=== PATIENT | female | born 1965 | race Two or more races ===

== ENCOUNTER 2016-10-20 14:11 | Emergency (ER) | payer MEDICAID ==
[~2016-10-20] VITALS: Ht 157.5 cm; Wt 80.7 kg
[2016-10-20 15:18] LABS: Basophils # (auto) 0.1 uL; CONDITION Y; Eosinophils # (auto) 0.1 uL; Hemoglobin 12.8 g/dL (12.2-16.2); Lymphocytes # (auto) 2.1 uL; Lymphocytes % (auto) 24.2 % (10.0-50.0); Mean Corpuscular Hemoglobin 30.6 pg (28.0-32.0); Mean Corpuscular Hgb Conc. 34.5 g/dL (32.0-36.0); Mean Corpuscular Volume 88.9 fL (80.0-100.0); Mean Platelet Volume 8.3 fL (7.4-10.4); Monocytes # (auto) 0.4 uL; Monocytes % (auto) 4.4 % (0.0-12.0); Neutrophils # (auto) 6.1 uL; Neutrophils % (auto) 69.4 % (37.0-80.0); Platelet Count (auto) 300 10^3/uL (140-450); Red Cell Distribution Width 13.7 % (11.6-16.0); White Blood Cell 8.8 10^3/uL (4.4-10.8)
[2016-10-20 15:29] LABS: Albumin 3.5 g/dL (3.4-5.0); BUN/Creatinine Ratio 27.3; Bilirubin, Total 0.6 mg/dL (0.2-1.0); Calcium 8.4 mg/dL (8.5-10.1); Potassium 3.4 mmol/L (3.5-5.1); Total Protein 6.8 g/dL (6.4-8.2)
[2016-10-21 00:09] LABS: Magnesium 2.1 mg/dL (1.6-2.6)
[2016-10-21 00:10] VITALS: BP 147/73
[2016-10-21 00:12] LABS: INR 0.93 (0.9-1.15); Partial Thromboplastin Time 26.5 sec (22.64-33.71); Prothrombin Time 10.1 sec (9.37-12.3)
[2016-10-21 00:36] LABS: B-Type Natriuretic Peptide 57.72 pg/mL (0-100); Temperature: 22.9 C (20.0-25.0)
== END 2016-10-21 01:16 | disposition home or self-care (01) ==
LOC: ER 14:11
DX: R07.89 Other chest pain (principal); I10 Essential (primary) hypertension; R09.1 Pleurisy
CPT/HCPCS: 36415; 71020; 80053; 83735; 83880; 84443; 84484; 85025; 85379; 85610; 85730; 93005

== ENCOUNTER 2020-04-17 21:58 | Emergency (ER) | payer MEDICAID ==
[~2020-04-17] VITALS: Ht 154.9 cm; Wt 74.4 kg
[2020-04-17 22:10] VITALS: BP 147/78
[2020-04-17] MEDS ORDERED: LIDOCAINE VISCOUS 2% 15ML UD MT ONE (22:45)
[2020-04-17] MEDS ORDERED: SUCRALFATE 1 GM/10 ML ORAL SUSP PO ONE (22:45)
[2020-04-17] MEDS ORDERED: FAMOTIDINE 20 MG TAB PO ONE (22:45)
[2020-04-17 23:28] LABS: Basophils # (auto) 0.1 10 ^3/uL (0-0.2); Basophils % (auto) 0.7 % (0.0-2.0); Eosinophils # (auto) 1.3 10 ^3/uL (0-0.8); Eosinophils % (auto) 12.7 % (0.0-7.0); Hematocrit 40.4 % (36.0-46.0); Hemoglobin 13.7 g/dL (12.2-16.2); Lymphocytes # (auto) 3.3 10 ^3/uL (0.4-5.4); Lymphocytes % (auto) 32.5 % (10.0-50.0); Mean Corpuscular Hemoglobin 29.9 pg (28.0-32.0); Mean Corpuscular Hgb Conc. 33.9 g/dL (32.0-36.0); Mean Corpuscular Volume 88.1 fL (80.0-100.0); Monocytes # (auto) 0.5 10 ^3/uL (0-1.3); Monocytes % (auto) 4.4 % (0.0-12.0); Neutrophils # (auto) 5.1 10 ^3/uL (1.6-8.6); Neutrophils % (auto) 49.7 % (37.0-80.0); Nucleated Red Blood Cells % 0.1 %; Platelet Count (auto) 284 10^3/uL (140-450); Red Blood Cells 4.58 10^6/uL (4.0-5.20); Red Cell Distribution Width 13.5 % (11.8-14.3); White Blood Cell 10.2 10^3/uL (4.4-10.8)
[2020-04-17 23:43] LABS: Albumin 4.1 g/dL (3.4-5.0); Anion Gap 5 (5-15); Calcium 9.7 mg/dL (8.5-10.1); Carbon Dioxide 26 mmol/L (21-32); Chloride 107 mmol/L (98-107); Glucose 92 mg/dL (74-106); Lipase 127 U/L (73-393); Potassium 3.8 mmol/L (3.5-5.1); Sodium 138 mmol/L (136-145)
[2020-04-17 23:47] LABS: Alanine Aminotransferase 30 U/L (13-56); Alkaline Phosphatase 78 U/L (45-117); Aspartate Aminotransferase 21 U/L (15-37); BUN/Creatinine Ratio 26.7; Bilirubin, Total 0.5 mg/dL (0.2-1.0); Blood Urea Nitrogen 16 mg/dL (7-18); GFR African American 134 mL/min; GFR Non-African American 111 mL/min
== END 2020-04-18 01:45 | disposition left against medical advice (07) ==
LOC: ER 21:58
DX: R07.89 Other chest pain (principal); I10 Essential (primary) hypertension
CPT/HCPCS: 36415; 71045; 80053; 83690; 84484; 85025; 93005